=== PATIENT | female | born 1945 | race Caucasian/White ===

== ENCOUNTER 2021-06-03 12:23 | Outpatient (REF) | payer OTHER, SELFPAY ==
--- NOTE | ~2021-06-03 | XR_ITS ---
EXAMINATION: XR STANDING VIEWS BOTH KNEES, 2 ADDITIONAL VIEWS LEFT KNEE CLINICAL INFORMATION: Knee pain COMPARISON: 05/16/2019 TECHNIQUE: Standing view both knees, 2 additional views left knee. FINDINGS: Again seen are tricompartmental degenerative changes in the knees. There is narrowing of both medial compartments, right greater than left. Severe narrowing present in the patellofemoral compartment as well. No joint effusion is seen. No chondrocalcinosis is seen. When comparison is made to the 05/16/2019 study, there has been no significant interval change. XR/XR knee standing BI IMPRESSION: Tricompartmental degenerative changes both knees.
--- NOTE | ~2021-06-03 | XR_ITS ---
EXAMINATION: XR STANDING VIEWS BOTH KNEES, 2 ADDITIONAL VIEWS LEFT KNEE CLINICAL INFORMATION: Knee pain COMPARISON: 05/16/2019 TECHNIQUE: Standing view both knees, 2 additional views left knee. FINDINGS: Again seen are tricompartmental degenerative changes in the knees. There is narrowing of both medial compartments, right greater than left. Severe narrowing present in the patellofemoral compartment as well. No joint effusion is seen. No chondrocalcinosis is seen. When comparison is made to the 05/16/2019 study, there has been no significant interval change. XR/XR knee LT 2V IMPRESSION: Tricompartmental degenerative changes both knees.
== END 2021-06-03 12:24 | disposition home or self-care (01) ==
LOC: HO.HOSX 12:23
PROVIDERS: Visit Provider Orthopaedic Surgery
DX: M17.12 Unilateral primary osteoarthritis, left knee (principal); M54.16 Radiculopathy, lumbar region
CPT/HCPCS: 20610; 73560; 73565; 99212; J1100

== ENCOUNTER → 2021-06-24 12:50 | Outpatient (BNVA) | payer OTHER, SELFPAY | PROVIDERS: PCP Internal Medicine; Visit Provider Internal Medicine | DX: I83.819 Varicose veins of unspecified lower extremity with pain (principal); M54.16 Radiculopathy, lumbar region | CPT/HCPCS: 99202 ==

== ENCOUNTER 2023-02-26 12:54 | Outpatient (AMB) | payer OTHER, SELFPAY ==
--- NOTE | 2023-02-26 13:03 | MHC.OFFVIS ---
Intake Vital Signs 02/26/23 13:05 Height 5 ft 2 in Weight 189 lb BMI 34.6 Intake Visit Reasons: ov- osteoarthritis of left knee Intake Note: Shikha 77 yr old presents today for her left knee pain. States last injection was on 06/03/21 and provided pain relief. Patient would like to repeat injection today. Allergies No Known Allergies Allergy (Verified 02/26/23 13:07) HPI ov- osteoarthritis of left knee HPI Details Shikha is a 77 year old woman with left knee OA. She has a hx of relief from steroid injections, and was last injected on 06/03/21, with good relief. She would like a repeat injection today. She is able to walk, but does so with some discomfort. She has a hx of lumbar radiculopathy [facility] Medical History Asthma Diabetes Review of Systems Const All systems reviewed & are unremarkable except as noted in HPI and below Physical Exam Vital Signs: BMI result Body Mass Index 34.6 Const General: no acute distress and alert Orientation/consciousness: patient oriented x3 Neuro General: patient oriented x3 Extrem Other: Left Knee: medial compartment ttp mild effusion 5-125 antalgic gait Psych Appearance: grossly normal Affect: normal affect Attitude: cooperative Office Procedures Joint Injection/Drain Joint Injection/Drain Details: Injected 1 mL of Decadron and 3 mL 1% lidocaine and 3 mL of 0.25% Marcaine. Site was prepped using aseptic technique. Patient tolerated the procedure well. Primary Site: left knee Approach Used: anterolateral Coding 35768 - Large joint Procedure code (CPT) selection complete Results Reviewed Results Reviewed: 02/26/23 13:08 Lidocaine HCl 2 % MPF [Xylocaine 2 % MPF] 5 ml .ROUTE .STK-MED ONE dexAMETHasone sod phosphate [Decadron] 4 mg .ROUTE .STK-MED ONE Assessment & Plan Assessment & Plan (1) Localized osteoarthritis of left knee: Code(s): M17.12 - Unilateral primary osteoarthritis, left knee Plan: This is a 77 year old woman with left knee OA. She primarily has discomfort with ambulation, and a hx of relief from steroid injections. She was last seen and injected on 06/03/21. I injected her left knee today, which she tolerated well. She can follow up prn. Plan Scribed for Dheeraj Reed MD by Hal Alfaro, medical affairs leader, on 02/26/23 at 1:15 PM, EST. Coding Level of Care Code Est Pt Level 4 (61027) Diagnoses Localized osteoarthritis of left knee M17.12 CPT Codes Coding - 18199 Large joint: 38139 - Large joint ([id number])
[2023-02-26 13:05] VITALS: BMI 34.6
== END 2023-02-26 16:29 | disposition home or self-care (01) ==
PROVIDERS: PCP Internal Medicine; Visit Provider Orthopaedic Surgery
DX: M17.12 Unilateral primary osteoarthritis, left knee (principal)
CPT/HCPCS: 20610; 99214

== ENCOUNTER → 2023-02-26 12:54 | Outpatient (BNVA) | payer OTHER, SELFPAY | PROVIDERS: PCP Internal Medicine; Visit Provider Orthopaedic Surgery | DX: M17.12 Unilateral primary osteoarthritis, left knee (principal) | CPT/HCPCS: 20610; 99212; J1100 ==